=== PATIENT | female | born 2000 | race Caucasian/White ===

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

== ENCOUNTER 2021-05-26 10:32 | Emergency (ER) | payer SELFPAY ==
[~2021-05-26] VITALS: Ht 170.2 cm; Wt 59.1 kg
[~2021-05-26 10:32] MED LIST: BACTROBAN15 GM TOP
[2021-05-26 11:50] VITALS: TEMP 98.8
[2021-05-26 12:52] LABS: ALBUMIN 3.8 gm/dL (3.5-5.0); BILIRUBIN,TOTAL 0.2 mg/dL (0.2-1.2); CREATININE, serum 0.9 mg/dL (0.57-1.11); POTASSIUM 4.5 mmol/L (3.5-4.5); TOTAL PROTEIN 7.1 gm/dL (6.2-8.1)
[2021-05-26 12:53] LABS: BASO % 0.4 % (0.0-2.0); EOS % 0.4 % (0.0-4.0); GRAN # 2.8 K/mm3 (1.4-6.5); HEMATOCRIT 36.5 % (35.0-45.0); HEMOGLOBIN 11.7 g/dl (12.0-15.0); LYMPH # 1.3 K/mm3 (1.2-3.4); LYMPH % 29.2 % (20.0-51.0); MEAN CELL VOLUME 79 fl (80.0-95.0); MEAN CORPUSCULAR HEMOGLOBIN 25 pg (26-32); MEAN CORPUSCULAR HGB CONC 32 g/dl (33.0-37.0); MEAN PLATELET VOLUME 10.4 fl (7.4-10.4); MONO # 0.5 K/mm3 (0.1-0.6); MONO % 9.8 % (1.7-9.3); PLATELET COUNT 245 K/mm3 (130-400); RED BLOOD COUNT 4.61 M/mm3 (4.10-5.30); REDCELL DISTRIBUTION WIDTH-CV 13.9 % (11.5-14.5)
[2021-05-26 14:16] VITALS: BP 118/74; PULSE 74
== END 2021-05-26 12:35 | disposition home or self-care (01) ==
LOC: COL.ER 10:32
PROVIDERS: Family Medicine
DX: U07.1 COVID-19 (principal); R55 Syncope and collapse
CPT/HCPCS: J2405; J7120